=== PATIENT | female | born 1935 | race African-American/Black ===

== ENCOUNTER 2018-05-24 10:09 | Inpatient (IN) | payer MEDICARE, OTHER ==
[~2018-05-24] VITALS: Ht 165.1 cm; Wt 58.5 kg
[~2018-05-24 10:09] MED LIST: ACET-3161 PO; AMIT10TA6 PO; ASPI-1159 MT; BACL-141 PO; BENA40TA9 MT; CARV3.1242 PO; CHLO25TA2 MT; DEXL30CA3 PO; GABA-531 MT; LEVO25TA7 PO; NAPR-677 PO; NIFE30TA94 PO; TRAM50TA3 MT
[2018-05-24 11:20] LABS: BASOPHILS % 1.8 % (0.0-2.0); EOSINOPHILS % 1.3 % (0.0-5.0); HEMATOCRIT. 34.6 % (36.0-48.0); HEMOGLOBIN. 11.4 g/dL (12.0-16.0); LYMPHOCYTES % 25.8 % (20.0-50.0); MEAN CORPUSCULAR HEMOGLOBIN 29.8 pg (28.0-32.0); MEAN CORPUSCULAR VOLUME 90.2 fL (81.0-99.0); MEAN PLATELET VOLUME 9.9 fl (7.4-10.4); MONOCYTES % 7.7 % (2.0-8.0); NEUTROPHILS % 63.4 % (40.0-76.0); PLATELET 199 x1000/uL (130-400); RED BLOOD CELL COUNT 3.84 mill/uL (4.2-5.4); RED CELL DISTRIBUTION WIDTH 17.8 % (11.6-14.6)
[2018-05-24 11:27] LABS: CHLORIDE 108 mEq/L (98-107)
[2018-05-24] MEDS ORDERED: FUROSEMIDE 40MG/4ML VIAL IV ONE (11:45)
[2018-05-24] MEDS ORDERED: ACETAMINOPHEN 325MG TABLET PO ONE (11:45)
[2018-05-24] MEDS ORDERED: ASPIRIN 81MG TABLET PO ONE (11:45)
[2018-05-24] MEDS ORDERED: CLONIDINE 0.1MG TABLET PO PRN (13:00)
[2018-05-24] MEDS ORDERED: NA PHOS,M-B/NA PHOS,DI-BA ENEMA 118ML PR PRN (13:00)
[2018-05-24] MEDS ORDERED: HYDROCODONE/ACETAMINOPHEN 5/325MG TABLET PO PRN (13:00)
[2018-05-24] MEDS ORDERED: GUAIFENESIN 200MG/10ML SUGAR FREE UDC PO PRN (13:00)
[2018-05-24] MEDS ORDERED: LORAZEPAM 2MG/ML CPJ IV PRN (13:00)
[2018-05-24] MEDS ORDERED: DOCUSATE SODIUM 100MG CAPSULE PO PRN (13:00)
[2018-05-24] MEDS ORDERED: ACETAMINOPHEN 325MG TABLET PO PRN (13:00)
[2018-05-24] MEDS ORDERED: ONDANSETRON HCL 4MG/2ML INJ IV PRN (13:00)
[2018-05-24] MEDS ORDERED: IPRATROPIUM/ALBUTEROL 0.5-3(2.5)MG/3ML NEB INH PRN (13:00)
[2018-05-24 15:21] LABS: CREATINE KINASE MB FRACTION 4.5 ng/mL (0.5-3.6)
[2018-05-24 20:00] VITALS: BP 161/64
[2018-05-24] MEDS: ENOXAPARIN 30MG/0.3ML SYR SUBCUT SCH (22:26)
[2018-05-25] VITALS: BP 107/59
[2018-05-25 00:17] LABS: CREATINE KINASE MB FRACTION 4.2 ng/mL (0.5-3.6)
[2018-05-25 04:00] VITALS: BP 167/62
[2018-05-25 06:58] LABS: BASOPHILS % 0.6 % (0.0-2.0); EOSINOPHILS % 1.1 % (0.0-5.0); HEMOGLOBIN. 11.1 g/dL (12.0-16.0); LYMPHOCYTES % 30.8 % (20.0-50.0); MEAN CORPUSCULAR HEMOGLOBIN 30.2 pg (28.0-32.0); MEAN CORPUSCULAR VOLUME 90.1 fL (81.0-99.0); MEAN PLATELET VOLUME 9.9 fl (7.4-10.4); MONOCYTES % 9.1 % (2.0-8.0); NEUTROPHILS % 58.4 % (40.0-76.0); PLATELET 187 x1000/uL (130-400); RED BLOOD CELL COUNT 3.66 mill/uL (4.2-5.4); RED CELL DISTRIBUTION WIDTH 17.5 % (11.6-14.6)
[2018-05-25 07:44] LABS: CHLORIDE 107 mEq/L (98-107)
[2018-05-25 07:57] LABS: LDL CHOLESTEROL 63 mg/dL (5-100)
[2018-05-25 07:59] LABS: HDL CHOLESTEROL 73 mg/dL (40-59)
[2018-05-25 08:15] VITALS: BP 124/67
[2018-05-25] MEDS ORDERED: AMLODIPINE 10MG TABLET PO SCH (09:00)
[2018-05-25] MEDS ORDERED: ASPIRIN 81MG EC TABLET PO SCH (09:00)
[2018-05-25] MEDS ORDERED: MAGNESIUM/ALUMINUM HYDROXIDE/SIMETHICONE 30ML UDC PO PRN (10:15)
[2018-05-25] MEDS: ENOXAPARIN 30MG/0.3ML SYR SUBCUT SCH (10:20)
[2018-05-25 12:00] VITALS: BP 118/74
[2018-05-25 13:30] VITALS: BP 118/74
== END 2018-05-25 15:14 | disposition home health service (06) | DRG 194 ==
LOC: ER 10:09 → 7WST 11:55 → EDBEDREQTM 12:02 → EDBEDREQ 12:02 → ENRESERV 16:46
PROVIDERS: ADMIT Hospitalist; ATTEND Hospitalist
DX: I11.0 Hypertensive heart disease with heart failure (principal); G62.9 Polyneuropathy, unspecified; R06.03 Acute respiratory distress; F03.90 Unspecified dementia, unspecified severity, without behavioral disturbance, psychotic disturbance, mood disturbance, and anxiety; I50.33 Acute on chronic diastolic (congestive) heart failure; F17.200 Nicotine dependence, unspecified, uncomplicated; H54.8 Legal blindness, as defined in USA; Z79.899 Other long term (current) drug therapy
CPT/HCPCS: 36415; 71045; 80053; 80061; 82550; 82553; 83880; 84484; 85025; 93005; 93306; 93970; 96374; 99291; J1650; J1940; J2060

== ENCOUNTER 2018-09-07 15:09 | Inpatient (IN) | payer MEDICARE, OTHER ==
[~2018-09-07] VITALS: Ht 167.6 cm; Wt 53.8 kg
[2018-09-07] MEDS ORDERED: METHYLPREDNISOLONE SOD SUCC 125 MG/2 ML VIAL IV STA (16:21)
[2018-09-07] MEDS ORDERED: IPRATROPIUM/ALBUTEROL 0.5-3(2.5)MG/3ML NEB HHN ONE (16:30)
[2018-09-07] MEDS ORDERED: MAGNESIUM 2 G PREMIX 50 ML IV ONE (16:30)
[2018-09-07] MEDS ORDERED: LEVOFLOXACIN 750MG PREMIX 150 ML IV ONE (16:30)
[2018-09-07 16:58] LABS: BG BASE EXCESS 2.4 mmol/L (-2.0-2.0); BG CARBOXYHEMOGLOBIN 1.2 % (0.5-1.5); BG DEOXYHEMOGLOBIN 6.1 % (0.0-5.0); BG FRACTION INSPIRED OXYGEN 21; BG HCO3 ACT 27.3 mmol/L (22.0-26.0); BG METHEMOGLOBIN 0.1 % (0.0-1.5); BG OXYGEN SATURATION 93.8 % (92.0-98.5); BG OXYHEMOGLOBIN 92.6 % (94.0-97.0); BG PO2 69.7 mmHg (75.0-100.0); BG SAMPLE SITE RIGHT BRACHIAL; BG VENT MODE ROOM AIR
[2018-09-07 18:25] LABS: BASOPHILS % 0.7 % (0.0-2.0); EOSINOPHILS % 0.7 % (0.0-5.0); HEMATOCRIT. 41.5 % (36.0-48.0); HEMOGLOBIN. 13.5 g/dL (12.0-16.0); LYMPHOCYTES % 39.7 % (20.0-50.0); MEAN CORPUSCULAR HEMOGLOBIN 29.2 pg (28.0-32.0); MEAN CORPUSCULAR VOLUME 89.8 fL (81.0-99.0); MEAN PLATELET VOLUME 10.4 fl (7.4-10.4); MONOCYTES % 8.9 % (2.0-8.0); PLATELET 146 x1000/uL (130-400); RED BLOOD CELL COUNT 4.62 mill/uL (4.2-5.4); RED CELL DISTRIBUTION WIDTH 15.4 % (11.6-14.6)
[2018-09-07 18:29] LABS: PARTIAL THROMBOPLASTIN TIME 23.4 sec (23.4-31.0); PROTHROMBIN TIME 10.5 sec (9.1-11.1)
[2018-09-07 18:30] LABS: CHLORIDE 103 mEq/L (98-107)
[2018-09-07 18:39] LABS: ETHANOL BLOOD < 10 mg/dL
[2018-09-07] MEDS ORDERED: ASPIRIN 81MG TABLET PO ONE (21:45)
[2018-09-07] MEDS ORDERED: FUROSEMIDE 40MG/4ML VIAL IVP ONE (21:45)
[2018-09-08] MEDS ORDERED: HYDROMORPHONE HCL/PF 2MG/ML CPJ IV PRN (05:00)
[2018-09-08] MEDS ORDERED: GUAIFENESIN 200MG/10ML SUGAR FREE UDC PO PRN (05:00)
[2018-09-08] MEDS ORDERED: ENOXAPARIN 40MG/0.4ML SYR SUBCUT SCH (05:00)
[2018-09-08] MEDS ORDERED: ONDANSETRON HCL 4MG/2ML INJ IV PRN (05:00)
[2018-09-08] MEDS ORDERED: IPRATROPIUM/ALBUTEROL 0.5-3(2.5)MG/3ML NEB INH PRN (05:00)
[2018-09-08] MEDS ORDERED: DOCUSATE SODIUM 100MG CAPSULE PO PRN (05:00)
[2018-09-08] MEDS ORDERED: LEVOFLOXACIN 500MG PREMIX 100 ML IV SCH (05:00)
[2018-09-08] MEDS: METHYLPREDNISOLONE SOD SUCC 125 MG/2 ML VIAL IV SCH ×3 (05:36→18:11)
[2018-09-08] MEDS: CLONIDINE 0.1MG TABLET PO PRN (06:58)
[2018-09-08 09:58] VITALS: BP 155/72
[2018-09-08] MEDS: AMLODIPINE 10MG TABLET PO SCH (10:00)
[2018-09-08] MEDS: ENOXAPARIN 30MG/0.3ML SYR SUBCUT SCH (10:00)
[2018-09-08] MEDS: ASPIRIN 81MG EC TABLET PO SCH (10:00)
[2018-09-08] MEDS: NICOTINE 21MG PATCH TD SCH (10:00)
[2018-09-08] MEDS: FUROSEMIDE 40MG/4ML VIAL IV SCH (10:00)
[2018-09-08] MEDS: LORAZEPAM 2MG/ML CPJ IV PRN (11:46)
[2018-09-08] MEDS: ACETAMINOPHEN 325MG TABLET PO PRN (11:47)
[2018-09-08 12:00] VITALS: BP 147/76
[2018-09-08 16:00] VITALS: BP 155/67
[2018-09-08 16:16] LABS: CREATINE KINASE MB FRACTION 4.3 ng/mL (0.5-3.6)
[2018-09-08 20:00] VITALS: BP 108/72
[2018-09-09] VITALS: BP 140/74
[2018-09-09] MEDS: METHYLPREDNISOLONE SOD SUCC 125 MG/2 ML VIAL IV SCH ×2 (00:07→05:10)
[2018-09-09] MEDS: IPRATROPIUM/ALBUTEROL 0.5-3(2.5)MG/3ML NEB INH SCH ×5 (01:15→20:00)
[2018-09-09 04:00] VITALS: BP 138/70
[2018-09-09] MEDS ORDERED: LEVOFLOXACIN 250MG PREMIX 50 ML IV SCH (05:00)
[2018-09-09] MEDS: LEVOFLOXACIN 250MG PREMIX 50 ML IV SCH (05:06)
[2018-09-09 07:26] LABS: BASOPHILS % 0.1 % (0.0-2.0); HEMATOCRIT. 40.1 % (36.0-48.0); HEMOGLOBIN. 13.1 g/dL (12.0-16.0); LYMPHOCYTES % 13.7 % (20.0-50.0); MEAN CORPUSCULAR HEMOGLOBIN 29.1 pg (28.0-32.0); MEAN CORPUSCULAR VOLUME 88.8 fL (81.0-99.0); MONOCYTES % 6.1 % (2.0-8.0); NEUTROPHILS % 80.1 % (40.0-76.0); PLATELET 183 x1000/uL (130-400); RED BLOOD CELL COUNT 4.51 mill/uL (4.2-5.4); RED CELL DISTRIBUTION WIDTH 15.4 % (11.6-14.6)
[2018-09-09 08:00] VITALS: BP 135/61
[2018-09-09 09:25] LABS: CHLORIDE 101 mEq/L (98-107)
[2018-09-09] MEDS: ASPIRIN 81MG EC TABLET PO SCH (09:38)
[2018-09-09] MEDS: AMLODIPINE 10MG TABLET PO SCH (09:38)
[2018-09-09] MEDS: NICOTINE 21MG PATCH TD SCH (09:39)
[2018-09-09] MEDS: ENOXAPARIN 30MG/0.3ML SYR SUBCUT SCH (09:39)
[2018-09-09] MEDS: FUROSEMIDE 40MG/4ML VIAL IV SCH (09:39)
[2018-09-09] MEDS: GUAIFENESIN 600MG ER TABLET PO SCH ×2 (09:42→22:04)
[2018-09-09 16:00] VITALS: BP 131/67
[2018-09-09] MEDS: METHYLPREDNISOLONE SOD SUCC 40 MG/ML VIAL IV SCH (17:44)
[2018-09-09 20:00] VITALS: BP 148/82
[2018-09-09] MEDS: LORAZEPAM 2MG/ML CPJ IV PRN (22:03)
[2018-09-10] VITALS: BP_SYST 140; BP_SYST 151; BP_DIAS 52; BP_DIAS 88
[2018-09-10] MEDS: IPRATROPIUM/ALBUTEROL 0.5-3(2.5)MG/3ML NEB INH SCH ×5 (01:25→21:22)
[2018-09-10] MEDS: LORAZEPAM 2MG/ML CPJ IV PRN (02:49)
[2018-09-10 04:00] VITALS: BP 135/86
[2018-09-10] MEDS: LEVOFLOXACIN 250MG PREMIX 50 ML IV SCH (04:38)
[2018-09-10] MEDS: METHYLPREDNISOLONE SOD SUCC 40 MG/ML VIAL IV SCH (05:16)
[2018-09-10 08:00] VITALS: BP 125/86
[2018-09-10] MEDS: ENOXAPARIN 30MG/0.3ML SYR SUBCUT SCH (10:23)
[2018-09-10] MEDS: AMLODIPINE 10MG TABLET PO SCH (10:23)
[2018-09-10] MEDS: NICOTINE 21MG PATCH TD SCH (10:23)
[2018-09-10] MEDS: FUROSEMIDE 40MG/4ML VIAL IV SCH (10:23)
[2018-09-10] MEDS: GUAIFENESIN 600MG ER TABLET PO SCH ×2 (10:23→21:06)
[2018-09-10] MEDS: ASPIRIN 81MG EC TABLET PO SCH (10:23)
[2018-09-10 12:00] VITALS: BP 135/74
[2018-09-10 16:00] VITALS: BP 141/73
[2018-09-10] MEDS: SODIUM CHLORIDE 0.9% 1,000 ML IV SCH (19:33)
[2018-09-10 20:00] VITALS: BP 138/63
[2018-09-11] VITALS: BP 140/56
[2018-09-11] MEDS: SODIUM CHLORIDE 0.9% 1,000 ML IV SCH ×2 (00:20→10:04)
[2018-09-11] MEDS: IPRATROPIUM/ALBUTEROL 0.5-3(2.5)MG/3ML NEB INH SCH ×4 (02:10→20:00)
[2018-09-11 04:00] VITALS: BP 178/62
[2018-09-11] MEDS: LEVOFLOXACIN 250MG PREMIX 50 ML IV SCH (06:03)
[2018-09-11 06:14] LABS: BASOPHILS % 0.2 % (0.0-2.0); EOSINOPHILS % 0.1 % (0.0-5.0); HEMATOCRIT. 41.5 % (36.0-48.0); HEMOGLOBIN. 13.5 g/dL (12.0-16.0); LYMPHOCYTES % 24.8 % (20.0-50.0); MEAN CORPUSCULAR HEMOGLOBIN 28.7 pg (28.0-32.0); MEAN CORPUSCULAR VOLUME 88.1 fL (81.0-99.0); MONOCYTES % 10.3 % (2.0-8.0); NEUTROPHILS % 64.6 % (40.0-76.0); PLATELET 182 x1000/uL (130-400); RED BLOOD CELL COUNT 4.71 mill/uL (4.2-5.4); RED CELL DISTRIBUTION WIDTH 15.4 % (11.6-14.6)
[2018-09-11 06:31] LABS: CHLORIDE 104 mEq/L (98-107)
[2018-09-11 08:00] VITALS: BP_SYST 124; BP_SYST 163; BP_DIAS 140; BP_DIAS 60
[2018-09-11] MEDS: GUAIFENESIN 600MG ER TABLET PO SCH ×2 (10:04→20:18)
[2018-09-11] MEDS: AMLODIPINE 10MG TABLET PO SCH (10:04)
[2018-09-11] MEDS: ASPIRIN 81MG EC TABLET PO SCH (10:05)
[2018-09-11] MEDS: PREDNISONE 20MG TABLET PO SCH (10:05)
[2018-09-11] MEDS: NICOTINE 21MG PATCH TD SCH (10:06)
[2018-09-11] MEDS: ENOXAPARIN 30MG/0.3ML SYR SUBCUT SCH (10:06)
[2018-09-11 12:52] VITALS: BP 141/90
[2018-09-11 16:00] VITALS: BP 108/57
[2018-09-11] MEDS: ACETAMINOPHEN 325MG TABLET PO PRN (17:43)
[2018-09-11 20:00] VITALS: BP 131/61
[2018-09-12] VITALS: BP 136/67
[2018-09-12] MEDS: IPRATROPIUM/ALBUTEROL 0.5-3(2.5)MG/3ML NEB INH SCH ×3 (01:21→20:12)
[2018-09-12 04:00] VITALS: BP 129/68
[2018-09-12] MEDS: SODIUM CHLORIDE 0.9% 1,000 ML IV SCH ×2 (04:34→20:07)
[2018-09-12 08:00] VITALS: BP 128/54
[2018-09-12] MEDS: AMLODIPINE 10MG TABLET PO SCH (09:00)
[2018-09-12] MEDS: PREDNISONE 20MG TABLET PO SCH (10:46)
[2018-09-12] MEDS: GUAIFENESIN 600MG ER TABLET PO SCH ×2 (10:46→20:05)
[2018-09-12] MEDS: ASPIRIN 81MG EC TABLET PO SCH (10:47)
[2018-09-12] MEDS: NICOTINE 21MG PATCH TD SCH (10:47)
[2018-09-12] MEDS: ENOXAPARIN 30MG/0.3ML SYR SUBCUT SCH (10:47)
[2018-09-12 12:00] VITALS: BP 132/71
[2018-09-12 16:00] VITALS: BP 127/76
[2018-09-12 20:00] VITALS: BP 153/91
[2018-09-12] MEDS: CLONIDINE 0.1MG TABLET PO PRN (20:05)
[2018-09-13] VITALS: BP 159/97
[2018-09-13] MEDS: LORAZEPAM 2MG/ML CPJ IV PRN (00:25)
[2018-09-13] MEDS: ACETAMINOPHEN 325MG TABLET PO PRN ×2 (00:26→21:32)
[2018-09-13 04:00] VITALS: BP 150/90
[2018-09-13] MEDS: SODIUM CHLORIDE 0.9% 1,000 ML IV SCH ×2 (05:41→23:54)
[2018-09-13 08:00] VITALS: BP 127/66
[2018-09-13] MEDS ORDERED: LEVOFLOXACIN 250MG PREMIX 50 ML IV SCH (08:00)
[2018-09-13] MEDS ORDERED: PREDNISONE 20MG TABLET PO SCH (09:00)
[2018-09-13] MEDS: IPRATROPIUM/ALBUTEROL 0.5-3(2.5)MG/3ML NEB INH SCH ×4 (09:20→21:49)
[2018-09-13] MEDS: ENOXAPARIN 30MG/0.3ML SYR SUBCUT SCH (10:01)
[2018-09-13] MEDS: ASPIRIN 81MG EC TABLET PO SCH (10:01)
[2018-09-13] MEDS: CLOPIDOGREL 75MG TABLET PO SCH (10:01)
[2018-09-13] MEDS: AMLODIPINE 10MG TABLET PO SCH (10:02)
[2018-09-13] MEDS: GUAIFENESIN 600MG ER TABLET PO SCH ×2 (10:02→20:15)
[2018-09-13] MEDS: NICOTINE 21MG PATCH TD SCH (10:02)
[2018-09-13 10:17] LABS: T4 FREE 0.98 ng/dL (0.76-1.46)
[2018-09-13 12:00] VITALS: BP 144/73
[2018-09-13] MEDS: BUDESONIDE 0.5MG/2ML NEB HHN SCH ×2 (14:55→21:49)
[2018-09-13 16:00] VITALS: BP 141/75
[2018-09-13 18:38] LABS: CREATINE KINASE MB FRACTION 1.9 ng/mL (0.5-3.6)
[2018-09-13 20:00] VITALS: BP 155/54
[2018-09-14] VITALS: BP 119/60
[2018-09-14] MEDS: IPRATROPIUM/ALBUTEROL 0.5-3(2.5)MG/3ML NEB INH SCH ×4 (01:09→21:38)
[2018-09-14 04:00] VITALS: BP 144/61
[2018-09-14 07:10] LABS: CREATINE KINASE MB FRACTION 1.8 ng/mL (0.5-3.6)
[2018-09-14 08:00] VITALS: BP 143/66
[2018-09-14] MEDS: ENOXAPARIN 30MG/0.3ML SYR SUBCUT SCH (08:52)
[2018-09-14] MEDS: ASPIRIN 81MG EC TABLET PO SCH (08:57)
[2018-09-14] MEDS: GUAIFENESIN 600MG ER TABLET PO SCH ×2 (08:57→21:33)
[2018-09-14] MEDS: CLOPIDOGREL 75MG TABLET PO SCH (08:57)
[2018-09-14] MEDS: NICOTINE 21MG PATCH TD SCH (08:57)
[2018-09-14] MEDS: AMLODIPINE 10MG TABLET PO SCH (08:57)
[2018-09-14] MEDS: SODIUM CHLORIDE 0.9% 1,000 ML IV SCH ×2 (08:58→21:35)
[2018-09-14] MEDS: BUDESONIDE 0.5MG/2ML NEB HHN SCH ×2 (09:57→21:38)
[2018-09-14 12:00] VITALS: BP 131/69
[2018-09-14 16:00] VITALS: BP_SYST 122; BP_SYST 136; BP_DIAS 68; BP_DIAS 79
[2018-09-14 20:00] VITALS: BP 166/58
[2018-09-14] MEDS: ACETAMINOPHEN 325MG TABLET PO PRN (22:48)
[2018-09-15] VITALS: BP 162/59
[2018-09-15] MEDS: IPRATROPIUM/ALBUTEROL 0.5-3(2.5)MG/3ML NEB INH SCH ×3 (01:24→15:50)
[2018-09-15 04:00] VITALS: BP 145/70
[2018-09-15] MEDS ORDERED: LEVOFLOXACIN 250MG TABLET PO SCH (08:00)
[2018-09-15 08:30] VITALS: BP 149/83
[2018-09-15] MEDS: CLOPIDOGREL 75MG TABLET PO SCH (08:41)
[2018-09-15] MEDS: AMLODIPINE 10MG TABLET PO SCH (08:41)
[2018-09-15] MEDS: GUAIFENESIN 600MG ER TABLET PO SCH (08:41)
[2018-09-15] MEDS: ENOXAPARIN 30MG/0.3ML SYR SUBCUT SCH (08:41)
[2018-09-15] MEDS: ASPIRIN 81MG EC TABLET PO SCH (08:41)
[2018-09-15] MEDS: NICOTINE 21MG PATCH TD SCH (08:42)
[2018-09-15] MEDS: BUDESONIDE 0.5MG/2ML NEB HHN SCH (09:05)
[2018-09-15] MEDS ORDERED: CARVEDILOL 3.125 MG TABLET PO SCH (11:30)
[2018-09-15 12:00] VITALS: BP 131/65
[2018-09-15 14:58] VITALS: BP 131/69
== END 2018-09-15 17:05 | disposition home health service (06) | DRG 194 ==
LOC: ER 15:09 → EDBEDREQ 18:48 → EDBEDREQTM 19:38 → EDBEDREQ 19:38 → ENRESERV 09-08 07:51 → 8WST 09-08 09:24
PROVIDERS: ADMIT Hospitalist; ATTEND Hospitalist
DX: I11.0 Hypertensive heart disease with heart failure (principal); J96.01 Acute respiratory failure with hypoxia; I47.2 Ventricular tachycardia; N17.9 Acute kidney failure, unspecified; I50.23 Acute on chronic systolic (congestive) heart failure; J44.1 Chronic obstructive pulmonary disease with (acute) exacerbation; E86.0 Dehydration; F03.90 Unspecified dementia, unspecified severity, without behavioral disturbance, psychotic disturbance, mood disturbance, and anxiety; I42.9 Cardiomyopathy, unspecified; F17.210 Nicotine dependence, cigarettes, uncomplicated; H54.8 Legal blindness, as defined in USA; I27.20 Pulmonary hypertension, unspecified; I42.8 Other cardiomyopathies; Z79.899 Other long term (current) drug therapy; Z79.1 Long term (current) use of non-steroidal anti-inflammatories (NSAID); Z79.82 Long term (current) use of aspirin
CPT/HCPCS: 36415; 36600; 71045; 78582; 80061; 82375; 82550; 82553; 82805; 83036; 83605; 83735; 83880; 84439; 84443; 84484; 85379; 93005; 93306; 93970; 94640; 97162; 99285; A9558; C1893; G0482; J1650; J1940; J1956; J2060; J2920; J2930; J3475; J7030; J7040; J7512; J7620; J7626

== ENCOUNTER 2019-06-01 09:56 | Emergency (ER) | payer MEDICARE, OTHER ==
[~2019-06-01] VITALS: Ht 165.1 cm; Wt 50.0 kg
[~2019-06-01 09:56] MED LIST changes: -ASPI-1159 MT; +ASPI-1393 MT
[2019-06-01] MEDS ORDERED: MORPHINE SULFATE 2 MG/ML CPJ (NOT FOR IM USE) IV ONE ×2 (11:00→13:30)
[2019-06-01] MEDS ORDERED: ACETAMINOPHEN 325MG TABLET PO ONE (11:00)
[2019-06-01 12:20] LABS: BASOPHILS % 0.5 % (0.0-2.0); EOSINOPHILS % 0.3 % (0.0-5.0); HEMATOCRIT. 40.2 % (36.0-48.0); HEMOGLOBIN. 13.1 g/dL (12.0-16.0); LYMPHOCYTES % 13.1 % (20.0-50.0); MEAN CORPUSCULAR HEMOGLOBIN 29.1 pg (28.0-32.0); MEAN CORPUSCULAR VOLUME 89.4 fL (81.0-99.0); MEAN PLATELET VOLUME 9.7 fl (7.4-10.4); MONOCYTES % 8.1 % (2.0-8.0); PLATELET 180 x1000/uL (130-400); RED CELL DISTRIBUTION WIDTH 15.1 % (11.6-14.6)
[2019-06-01 12:54] LABS: CHLORIDE 100 mEq/L (98-107)
[2019-06-01] MEDS ORDERED: LABETALOL 5MG/ML SYR 20 MG/4 ML SYRINGE IV ONE (14:15)
[2019-06-01] MEDS ORDERED: IOHEXOL-350 100 ML BOTTLE ONE (19:22)
[2019-06-01] MEDS ORDERED: LORAZEPAM 1MG TABLET PO ONE (19:30)
[2019-06-01] MEDS ORDERED: METHYLPREDNISOLONE SOD SUCC 125 MG/2 ML VIAL IV STA (20:18)
[2019-06-01] MEDS ORDERED: ALBUTEROL (0.083%) 2.5MG/3ML NEB HHN STA (20:18)
[2019-06-01] MEDS ORDERED: FUROSEMIDE 20MG TABLET PO ONE (21:00)
[2019-06-01 23:00] VITALS: BP 188/77
== END 2019-06-01 23:30 | disposition short-term general hospital (02) ==
LOC: ER 09:56
DX: M25.511 Pain in right shoulder (principal); M25.512 Pain in left shoulder; I11.0 Hypertensive heart disease with heart failure; I50.9 Heart failure, unspecified; J44.9 Chronic obstructive pulmonary disease, unspecified; Z90.49 Acquired absence of other specified parts of digestive tract; Z79.82 Long term (current) use of aspirin; Z79.899 Other long term (current) drug therapy
CPT/HCPCS: 36415; 71045; 71250; 73030; 80053; 83880; 84484; 85025; 93005; 94640; 96374; 96375; 96376; 99285; J2270; J2930; J3490; J7611; Q9967